=== PATIENT | male | born 1950 | race Caucasian/White ===

== ENCOUNTER → 2018-09-29 | Outpatient (CLI) | payer OTHER, BC ==
[~2018-09-29] MED LIST: CHOL10002; LISI20 PO; MELA3 PO; METF500 PO; METO25 PO; NAPR220; ZESTRIL40 MG PO
[2018-09-29 15:50] LABS: BASOPHILS ABSOLUTE AUTO 0.05 K/mm3 (0.00-0.23); BASOPHILS PERCENT AUTO 1 % (0-2); EOSINOPHILS ABSOLUTE AUTO 0.29 K/mm3 (0.00-0.68); EOSINOPHILS PERCENT AUTO 6 % (0-6); Hemoglobin 15.7 g/dL (13.5-17.5); IMMATURE GRAN ABSOLUTE AUTO 0.03 K/mm3 (0.00-0.10); IMMATURE GRAN PERCENT AUTO 1 % (0-1); LYMPHOCYTES ABSOLUTE AUTO 1.24 K/mm3 (0.84-5.20); LYMPHOCYTES PERCENT AUTO 25 % (21-46); MONOCYTES ABSOLUTE AUTO 0.45 K/mm3 (0.16-1.47); MONOCYTES PERCENT AUTO 9 % (4-13); Mean Corpuscular HGB 31.3 pg (26.0-34.0); Mean Corpuscular HGB Conc 34.9 g/dL (31.5-36.5); Mean Corpuscular Volume 90 fL (80-100); Mean Platelet Volume 10.4 fL (9.1-12.4); NEUTROPHILS ABSOLUTE AUTO 2.86 K/mm3 (1.96-9.15); NEUTROPHILS PERCENT AUTO 58 % (41-73); Platelet Count 170 K/mm3 (150-400); RDW Coefficient Variation 12.6 % (11.7-14.2); RDW Standard Deviation 40.8 fL (35.1-46.3); Red Blood Cell Count 5.02 M/mm3 (4.30-5.90); White Blood Cell Count 4.92 K/mm3 (4.00-11.30)
[2018-09-29 16:13] LABS: Albumin, Blood 3.9 g/dL (3.4-5.0); Albumin/Globulin Ratio 0.9 (0.8-1.8); Bilirubin, Total 0.5 mg/dL (0.1-1.0); Bun/Creatinine Ratio 14.8 (12.0-20.0); Calcium, Blood 9.6 mg/dL (8.5-10.1); Creatinine, Blood 1.22 mg/dL (0.60-1.20); Globulin, Blood 4.4 g/dL (2.2-4.0); Potassium, Blood 3.6 mmol/L (3.5-5.5); Thyroid Stimulating Hormone 1.756 uIU/mL (0.360-4.800); Total Protein, Blood 8.3 g/dL (6.4-8.2)
== END | disposition home or self-care (01) ==
LOC: LAB SHORT 15:46 → LAB EV 15:46
PROVIDERS: Physician Assistant
DX: R53.83 Other fatigue (principal)
CPT/HCPCS: 80053; 84443; 85025

== ENCOUNTER → 2021-11-11 | Outpatient (CLI) | payer OTHER ==
[2021-11-11 11:31] LABS: Protein, Urine Quantitative 6.8 mg/dL (0.0-11.9)
[2021-11-11 11:32] LABS: Microalbumin, Urine Quant. 10.2 mg/L (0.000-20.000)
== END ==
LOC: LAB SHORT 10:16 → LAB FUT 11-07 09:55
PROVIDERS: Internal Medicine Nephrology
DX: N18.4 Chronic kidney disease, stage 4 (severe) (principal); E78.00 Pure hypercholesterolemia, unspecified; E29.1 Testicular hypofunction; R76.9 Abnormal immunological finding in serum, unspecified; R94.5 Abnormal results of liver function studies; R94.6 Abnormal results of thyroid function studies; G80.9 Cerebral palsy, unspecified; D51.8 Other vitamin B12 deficiency anemias; D52.8 Other folate deficiency anemias; D50.9 Iron deficiency anemia, unspecified
CPT/HCPCS: 81050; 82043; 82570; 84156

== ENCOUNTER 2021-12-11 10:42 | Inpatient (IN) | payer OTHER ==
[~2021-12-11] VITALS: Ht 177.8 cm; Wt 98.9 kg
[2021-12-11 12:16] LABS: BASOPHILS ABSOLUTE AUTO 0.03 K/mm3 (0.00-0.23); BASOPHILS PERCENT AUTO 1 % (0-2); EOSINOPHILS ABSOLUTE AUTO 0.22 K/mm3 (0.00-0.68); EOSINOPHILS PERCENT AUTO 4 % (0-6); Hemoglobin 10.9 g/dL (13.5-17.5); IMMATURE GRAN ABSOLUTE AUTO 0.03 K/mm3 (0.00-0.10); IMMATURE GRAN PERCENT AUTO 1 % (0-1); LYMPHOCYTES ABSOLUTE AUTO 0.95 K/mm3 (0.84-5.20); LYMPHOCYTES PERCENT AUTO 17 % (21-46); MONOCYTES ABSOLUTE AUTO 0.48 K/mm3 (0.16-1.47); MONOCYTES PERCENT AUTO 9 % (4-13); Mean Corpuscular HGB 30.8 pg (26.0-34.0); Mean Corpuscular HGB Conc 34.1 g/dL (31.5-36.5); Mean Corpuscular Volume 90 fL (80-100); Mean Platelet Volume 9.8 fL (9.1-12.4); NEUTROPHILS ABSOLUTE AUTO 3.95 K/mm3 (1.96-9.15); NEUTROPHILS PERCENT AUTO 70 % (41-73); Platelet Count 171 K/mm3 (150-400); Red Blood Cell Count 3.54 M/mm3 (4.30-5.90); White Blood Cell Count 5.66 K/mm3 (4.00-11.30)
[2021-12-11 12:33] LABS: Albumin/Globulin Ratio 0.9 (0.8-1.8); Bilirubin, Total 0.4 mg/dL (0.1-1.0); Bun/Creatinine Ratio 13.5 (12.0-20.0); Calcium, Blood 10.6 mg/dL (8.5-10.1); Creatinine, Blood 3.93 mg/dL (0.60-1.20); Globulin, Blood 4.6 g/dL (2.2-4.0); Potassium, Blood 4.1 mmol/L (3.5-5.5); Total Protein, Blood 8.6 g/dL (6.4-8.2)
[2021-12-11 16:16] LABS: Percent Saturation 27.3 % (20.0-50.0)
[2021-12-11] MEDS ORDERED: AMLO10 PO (18:29)
--- NOTE | 2021-12-11 19:42 | NUR ---
SHIFT SUMMARY PT ADMITTED FOR URINARY RETENTION. RIOJAS CATHETER INSERTED AND PT IS NOW DRAINING LARGE AMOUNTS OF RED COLORED URINE. PT STATES THAT "CATHETER REALLY HURT" WHEN IT WAS INSERTED. PT HYPERTENSIVE THIS SHIFT AND TREATED PER EMR. PT STATES THAT HE FORGOT TO TAKE HIS BLOOD PRESSURE MEDICATION TODAY BECAUSE OF NEEDING TO COME TO THE HOSPITAL. REPORT GIVEN TO WALI MINAYA.
--- NOTE | 2021-12-12 05:23 | NUR ---
SHIFT SUMMARY ADMITTED FOR LALITHA/RETENTION. FULL CODE. PLAN IS FOR DC HOME W/SPOUSE WHEN STABLE. MONITORING LABS AND RENAL FUNCTION, WILL SEE UROLOGY OUTPT. HX OF RECTAL CANCER. RIOJAS IS IN PLACE. DR. FAIR IS CONSULT. URINE IS RED. INDEPENDENT IN ROOM, A&O X4.
[2021-12-12 05:50] LABS: Bun/Creatinine Ratio 14.9 (12.0-20.0); Creatinine, Blood 3.56 mg/dL (0.60-1.20); Potassium, Blood 3.9 mmol/L (3.5-5.5)
--- NOTE | 2021-12-12 18:33 | NUR ---
SHIFT SUMMARY PATIENT ALERT AND ORIENTED X4, PLEASANT AND COOPERATIVE WITH CARE. PATIENT IS INDEPENDENT. RIOJAS PATENT AND DRAINING RED, CRANBERRY COLORED URINE. PATIENT DENIES ANY PAIN. PATIENT MEDICATED X1 FOR NAUSEA THIS MORNING. PATIENT COMPLAINED OF CONSTIPATION. PRUNE JUICE OFFERED WITH DINNER. NO ACUTE EVENTS THIS SHIFT. BED IN LOWEST POSITION. CALL LIGHT WITHIN REACH.
[2021-12-12] MEDS ORDERED: MELATONIN5 M1 PO (20:41)
[2021-12-13 05:35] LABS: Hematocrit 32.8 % (37.0-53.0); Hemoglobin 11.2 g/dL (13.5-17.5); Mean Corpuscular HGB 31.3 pg (26.0-34.0); Mean Corpuscular HGB Conc 34.1 g/dL (31.5-36.5); Mean Corpuscular Volume 92 fL (80-100); Mean Platelet Volume 10.5 fL (9.1-12.4); Platelet Count 172 K/mm3 (150-400); RDW Coefficient Variation 13.1 % (11.7-14.2); RDW Standard Deviation 43.4 fL (35.1-46.3); Red Blood Cell Count 3.58 M/mm3 (4.30-5.90); White Blood Cell Count 7.54 K/mm3 (4.00-11.30)
--- NOTE | 2021-12-13 05:36 | NUR ---
SHIFT SUMMARY: PT IS A/OX4. HIS RIOJAS HAD CRANBERRY COLORED URINE WHICH HAS BECOME LESS RED THE SHIFT PROGRESSED. WE AGREED TO HAVE HIM BE A SBA TO THE BR FOR A BM, D/T BEING ATTACHED TO THE RIOJAS BAG. HE DID NOT HAVE A BM. OTHERWISE NO ACUTE CHANGES TO REPORT THIS SHIFT. CALL LIGHT IS WITHIN REACH.
[2021-12-13 05:52] LABS: Bun/Creatinine Ratio 14.4 (12.0-20.0); Calcium, Blood 8.9 mg/dL (8.5-10.1); Creatinine, Blood 3.9 mg/dL (0.60-1.20); Potassium, Blood 3.9 mmol/L (3.5-5.5)
--- NOTE | 2021-12-13 17:49 | NUR ---
SHIFT SUMMARY PATIENT ALERT AND ORIENTED X4, PLEASANT AND COOPERATIVE WITH CARE. PATIENT GIVEN BOWEL CARE THIS SHIFT. STARTED ON NS INFUSING AT 75MLS/HR. URINE CLEARING UP. RIOJAS PATENT AND DRAINING TO GRAVITY. PATIENT IS INDEPENDENT IN THE ROOM. NO TELE. ON RA DR. FAIR CONSULTED, NO ACUTE CHANGES. BED IN LOWEST POSITION. CALL LIGHT WITHIN REACH.
--- NOTE | 2021-12-14 04:40 | NUR ---
SHIFT SUMMARY: PT. IS A/OX4. INDEPENDEN IN ROOM. RIOJAS IS PATENT W/ CLEAR, PINK TINGED URINE. PT IS STILL TRYING TO HAVE A BM, BUT STATES HE SEEMS TO BE GETTING CLOSER TO A BM. PAIN HAS NO C/O PAIN. CALL LIGHT IS WITHIN REACH AND WE'LL CONTINUE TO MONITOR.
[2021-12-14 06:02] LABS: Hematocrit 33.2 % (37.0-53.0); Hemoglobin 11.3 g/dL (13.5-17.5)
[2021-12-14 06:23] LABS: Albumin, Blood 3.3 g/dL (3.4-5.0); Anion Gap 8 mmol/L (6-16); Blood Urea Nitrogen 51 mg/dL (8-24); CO2, Blood 23 mmol/L (21-32); Chloride, Blood 109 mmol/L (98-108); Glomerular Filtration Rate 21 (60-); Glucose, Blood 157 mg/dL (70-99); Magnesium, Blood 2.2 mg/dL (1.6-2.4); Phosphorus, Blood 3.6 mg/dL (2.5-4.9); Sodium, Blood 140 mmol/L (136-145)
[2021-12-14] MEDS ORDERED: MIRALAX11910 PO (15:01)
[2021-12-14] MEDS ORDERED: TAMS.4ER PO (15:03)
--- NOTE | 2021-12-14 16:53 | NUR ---
1640- PATIENT DISCHARGED TO HOME WITH TRANSPORTING. HIS RIOJAS WAS LEFT INDWELLING DIRECTED. IV WAS DC, AND PATIENT WAS GIVEN EDUCATIONAL MATERIALS ON HIS CONDITION AND RENAL DIET. HE IS AWARE OF FOLLOW UP APPTS. SCRIPTS WERE BOTH FAXED AND CALLED INTO [facility]. PATIENT WAS WHEELED OUT OF THE HOSPITAL, AND RODE HOME WITH HIS AND SISTER.
== END 2021-12-14 16:42 | disposition home or self-care (01) | DRG 683 ==
LOC: ER 10:42 → MEDS 10:43
PROVIDERS: Internal Medicine; Internal Medicine Nephrology; Physician Assistant; ADMIT Internal Medicine
DX: N17.9 Acute kidney failure, unspecified (principal); E87.2 Acidosis; N13.8 Other obstructive and reflux uropathy; T83.83XA Hemorrhage due to genitourinary prosthetic devices, implants and grafts, initial encounter; D63.1 Anemia in chronic kidney disease; I12.9 Hypertensive chronic kidney disease with stage 1 through stage 4 chronic kidney disease, or unspecified chronic kidney disease; N13.30 Unspecified hydronephrosis; N40.1 Benign prostatic hyperplasia with lower urinary tract symptoms; R33.8 Other retention of urine; N18.30 Chronic kidney disease, stage 3 unspecified; R31.9 Hematuria, unspecified; K59.00 Constipation, unspecified; E66.9 Obesity, unspecified; Z68.31 Body mass index [BMI] 31.0-31.9, adult; Z85.048 Personal history of other malignant neoplasm of rectum, rectosigmoid junction, and anus; Z79.84 Long term (current) use of oral hypoglycemic drugs; Z79.899 Other long term (current) drug therapy; Y84.6 Urinary catheterization as the cause of abnormal reaction of the patient, or of later complication, without mention of misadventure at the time of the procedure
CPT/HCPCS: 36415; 51702; 51798; 80048; 80053; 80069; 82728; 83540; 83550; 83735; 85014; 85018; 85025; 85027; 96374; 96375; 96376; 99284-25; A9270; G0103; G0378; J0360; J1644; J2405; J7030; J7120

== ENCOUNTER → 2021-12-27 | Outpatient (CLI) | payer OTHER ==
[~2021-12-27] MED LIST changes: +AMLO10 PO; +MELATONIN5 M1 PO; +MIRALAX11910 PO; +TAMS.4ER PO
== END | disposition home or self-care (01) ==
LOC: LAB 12:00 → LAB SHORT 12:00
DX: R82.998 Other abnormal findings in urine (principal)
CPT/HCPCS: 87077; 87086; 87186

== ENCOUNTER → 2023-05-03 | Outpatient (CLI) | payer OTHER ==
[2023-05-03 14:22] LABS: BASOPHILS ABSOLUTE AUTO 0.07 K/mm3 (0.00-0.23); BASOPHILS PERCENT AUTO 1 % (0-2); EOSINOPHILS ABSOLUTE AUTO 0.19 K/mm3 (0.00-0.68); EOSINOPHILS PERCENT AUTO 4 % (0-6); Hematocrit 45.5 % (37.0-53.0); Hemoglobin 15.7 g/dL (13.5-17.5); IMMATURE GRAN ABSOLUTE AUTO 0.06 K/mm3 (0.00-0.10); IMMATURE GRAN PERCENT AUTO 1 % (0-1); LYMPHOCYTES ABSOLUTE AUTO 1.15 K/mm3 (0.84-5.20); LYMPHOCYTES PERCENT AUTO 23 % (21-46); MONOCYTES ABSOLUTE AUTO 0.48 K/mm3 (0.16-1.47); MONOCYTES PERCENT AUTO 10 % (4-13); Mean Corpuscular HGB 31.1 pg (26.0-34.0); Mean Corpuscular HGB Conc 34.5 g/dL (31.5-36.5); Mean Corpuscular Volume 90 fL (80-100); NEUTROPHILS ABSOLUTE AUTO 3.06 K/mm3 (1.96-9.15); NEUTROPHILS PERCENT AUTO 61 % (41-73); Platelet Count 170 K/mm3 (150-400); RDW Coefficient Variation 13.8 % (11.7-14.2); Red Blood Cell Count 5.05 M/mm3 (4.30-5.90); White Blood Cell Count 5.01 K/mm3 (4.00-11.30)
[2023-05-03 14:28] LABS: Bun/Creatinine Ratio 15.8 (12.0-20.0); Calcium, Blood 9.7 mg/dL (8.5-10.1); Creatinine, Blood 1.52 mg/dL (0.60-1.20); Potassium, Blood 4.1 mmol/L (3.5-5.5)
== END | disposition home or self-care (01) ==
LOC: LAB 14:18 → LAB SHORT 14:18
PROVIDERS: Physician Assistant Surgical
DX: R03.0 Elevated blood-pressure reading, without diagnosis of hypertension (principal)
CPT/HCPCS: 80048; 85025